=== PATIENT | male | born 1960 | race Hispanic/Latino ===

== ENCOUNTER 2018-07-02 12:37 | Emergency (ER) | payer SELFPAY ==
[2018-07-02 13:27] LABS: Absolute Lymphocytes (CBC) 0.4 K/uL (0.7-4.9); Absolute Monocytes 0.6 K/uL (0.1-1.3); Absolute Neutrophil 6.4 K/uL (1.8-8.0); Basophils % 0.3 % (0-1.3); Eosinophils % 0.1 % (0-4.4); Hematocrit 44.4 % (39.6-49.0); Lymphocytes % 5.1 % (15.3-44.8); MCH 30.2 pg (27.0-35.0); MCV 87.1 fL (80-100); MPV 7.7 fL (7.6-11.3); Monocytes % 8.6 % (3.3-12.3)
[2018-07-02 13:52] LABS: Urine White Blood Cell Casts OK
[2018-07-02 13:53] LABS: Blood Morphology Comment NOT SEEN (NOT SEEN); Platelet Estimate ADEQ
[2018-07-02 13:56] LABS: Albumin 3.9 g/dL (3.4-5.0); Bilirubin Direct 0.2 mg/dL (0-0.2); Bilirubin Total 0.5 mg/dL (0.2-1.0); Potassium 3.5 mmol/L (3.5-5.1); Protein, Total 7.7 g/dL (6.4-8.2)
--- NOTE | 2018-07-02 14:35 | RAD REPORT ---
EXAM DESCRIPTION: CTAbdomen Pelvis W Contrast - 07/02/2018 2:24 pm CLINICAL HISTORY: Abdominal pain. iv contrast only;Abd pain COMPARISON: CT ABD PELVIS W CONTRAST dated 06/19/2015; CT ABD PELVIS W CONTRAST dated 09/09/2014 TECHNIQUE: Biphasic CT imaging of the abdomen and pelvis was performed with 100 ml non-ionic IV cont rast. All CT scans are performed using dose optimization technique as appropriate and may include automated exposure control or mA/KV adjustment according to patient size. FINDINGS: The lung bases are clear. The liver demonstrates diffuse fatty infiltration. The spleen, pancreas, adrenal glands and kidneys a re within normal limits. No bowel obstruction, free air, free fluid or abscess. Sigmoid diverticulosis coli without diverticul itis. The appendix is normal. Small fat containing left inguinal hernia. No evidence of significant l ymphadenopathy. No suspicious bony findings. IMPRESSION: No acute intra-abdominal or pelvic finding. Sigmoid diverticulosis coli without diverticulitis. Fatty liver.
--- NOTE | 2018-07-02 14:40 | EDPHYS ---
Physician Documentation [facility] Name: Manjinder Kauffman Age: 58 yrs Sex: Male : 1960 Arrival Date: 07/02/2018 Time: 12:38 Bed 14 Private MD: None, None ED Physician Uvaldo Collado HPI: 07/02 13:28 This 58 yrs old Male presents to ER via Ambulatory with complaints of Abd Pain kb > 50 y/o, Fever. 13:28 The patient presents with abdominal pain in the left upper quadrant, in the left lower kb quadrant. Onset: The symptoms/episode began/occurred 4 day(s) ago. The symptoms do not radiate. Associated signs and symptoms: Pertinent positives: nausea and vomiting, Pertinent negatives: anorexia, blood in stools, chest pain, constipation, diarrhea, dysuria, fever, headache, hematuria, palpitations, shortness of breath, testicular pain, vomiting blood. The symptoms are described as achy. Modifying factors: The symptoms are alleviated by nothing, the symptoms are aggravated by nothing. Severity of pain: At its worst the pain was moderate in the emergency department the pain is unchanged. The patient has not experienced similar symptoms in the past. The patient has not recently seen a physician. Historical: - Allergies: 12:49 No Known Allergies; iw - Home Meds: 12:49 None [Active]; iw - PMHx: 12:49 None; iw - PSHx: 12:49 None; iw - Immunization history:: Adult Immunizations not up to date. - Social history:: Smoking status: Patient/guardian denies using tobacco. - Ebola Screening: : Patient negative for fever greater than or equal to 101.5 degrees Fahrenheit, and additional compatible Ebola Virus Disease symptoms Patient denies exposure to infectious person Patient denies travel to an Ebola-affected area in the 21 days before illness onset No symptoms or risks identified at this time. ROS: 13:25 Constitutional: Negative for fever, chills, and weight loss, Cardiovascular: Negative kb for chest pain, palpitations, and edema, Respiratory: Negative for shortness of breath, cough, wheezing, and pleuritic chest pain, Back: Negative for injury and pain, : Negative for injury, bleeding, discharge, and swelling, MS/Extremity: Negative for injury and deformity, Skin: Negative for injury, rash, and discoloration, Neuro: Negative for headache, weakness, numbness, tingling, and seizure. 13:25 Abdomen/GI: Positive for abdominal pain, nausea and vomiting, Negative for diarrhea, constipation, abdominal cramps, abdominal distension, anorexia. Exam: 13:27 Constitutional: This is a well developed, well nourished patient who is awake, alert, kb and in no acute distress. Head/Face: Normocephalic, atraumatic. Chest/axilla: Normal chest wall appearance and motion. Nontender with no deformity. No lesions are appreciated. Cardiovascular: Regular rate and rhythm with a normal S1 and S2. No gallops, murmurs, or rubs. Normal PMI, no JVD. No pulse deficits. Respiratory: Lungs have equal breath sounds bilaterally, clear to auscultation and percussion. No rales, rhonchi or wheezes noted. No increased work of breathing, no retractions or nasal flaring. Back: No spinal tenderness. No costovertebral tenderness. Full range of motion. Skin: Warm, dry with normal turgor. Normal color with no rashes, no lesions, and no evidence of cellulitis. MS/ Extremity: Pulses equal, no cyanosis. Neurovascular intact. Full, normal range of motion. Neuro: Awake and alert, GCS 15, oriented to person, place, time, and situation. Cranial nerves II-XII grossly intact. Motor strength 5/5 in all extremities. Sensory grossly intact. Cerebellar exam normal. Normal gait. 13:27 Abdomen/GI: Inspection: abdomen appears normal, Bowel sounds: normal, in all quadrants, Palpation: soft, in all quadrants, mild abdominal tenderness, in all quadrants. Vital Signs: 12:48 BP 108 / 85; Pulse 105; Resp 17 S; Temp 99.0; Pulse Ox 96% on R/A; Pain 7/10; iw 13:45 BP 114 / 83; Pulse 80; Resp 17; Pulse Ox 96% on R/A; dh3 14:00 BP 121 / 61; Pulse 88; Resp 18; Pulse Ox 95% on R/A; dh3 15:00 BP 124 / 60; Pulse 82; Resp 17; Pulse Ox 99% on R/A; kr2 MDM: 12:47 Patient medically screened. kb 13:28 Data reviewed: vital signs, nurses notes. Data interpreted: Pulse oximetry: on room air kb is 96 %. Interpretation: normal. 14:38 Counseling: I had a detailed discussion with the patient and/or guardian regarding: the kb historical points, exam findings, and any diagnostic results supporting the discharge/admit diagnosis, lab results, radiology results, the need for outpatient follow up, a family practitioner, to return to the emergency department if symptoms worsen or persist or if there are any questions or concerns that arise at home. 07/02 12:51 Order name: Amylase, Serum; Complete Time: 13:58 kb 07/02 12:51 Order name: Basic Metabolic Panel; Complete Time: 13:58 kb 07/02 12:51 Order name: CBC with Diff; Complete Time: 13:58 kb 07/02 12:51 Order name: Hepatic Function; Complete Time: 13:58 kb 07/02 12:51 Order name: Lipase; Complete Time: 13:58 kb 07/02 13:30 Order name: CBC Smear Scan; Complete Time: 13:58 EDMS 07/02 12:51 Order name: IV Saline Lock; Complete Time: 13:23 kb 07/02 12:51 Order name: Labs collected and sent; Complete Time: 13:23 kb 07/02 13:59 Order name: CT Abd/Pelvis - W/Contrast; Complete Time: 14:38 kb Administered Medications: 13:21 Drug: Bentyl 20 mg Route: PO; kr2 13:50 Follow up: Response: No adverse reaction; Pain is decreased kr2 13:21 Drug: Zofran 4 mg Route: IVP; Site: right antecubital; kr2 13:50 Follow up: Response: No adverse reaction; Nausea is decreased kr2 13:22 Drug: NS 0.9% 1000 ml Route: IV; Rate: 1000 ml; Site: right antecubital; kr2 14:45 Follow up: Response: No adverse reaction; IV Status: Completed infusion kr2 Disposition: 07/03 07:22 Co-signature as Attending Physician, Uvaldo Collado MD I agree with the assessment and estefanía plan of care. Disposition: 07/02/18 14:39 Discharged to Home. Impression: Generalized abdominal pain, Nausea and vomiting. - Condition is Stable. - Discharge Instructions: Nausea and Vomiting, Adult, [id number], Abdominal Pain, Adult, [id number]. - Prescriptions for Bentyl 20 mg Oral Tablet - take 1 tablet by ORAL route every 6 hours As needed; 20 tablet. Zofran 4 mg Oral Tablet - take 1 tablet by ORAL route every 6 hours As needed; 20 tablet. - Medication Reconciliation Form, Thank You Letter, Antibiotic Education, Prescription Opioid Use form. - Follow up: Emergency Department; When: As needed; Reason: Worsening of condition. Follow up: Private Physician; When: 2 - 3 days; Reason: Recheck today's complaints, Continuance of care, Re-evaluation by your physician. Signatures: Dispatcher [employer] EDMS Kristi Tang, BATH DESIGN SALES CONSULTANT-C BATH DESIGN SALES CONSULTANT-Ckb Uvaldo Collado MD MD cha Williams, Irene RN Kandace Guerra RN RN kr2 Corrections: (The following items were deleted from the chart) 07/02 13:28 13:25 Constitutional: Negative for fever, chills, and weight loss, Cardiovascular: kb Negative for chest pain, palpitations, and edema, Respiratory: Negative for shortness of breath, cough, wheezing, and pleuritic chest pain, Back: Negative for injury and pain, : Negative for injury, bleeding, discharge, and swelling, MS/Extremity: Negative for injury and deformity, Skin: Negative for injury, rash, and discoloration, Neuro: Negative for headache, weakness, numbness, tingling, and seizure, kb 13:28 13:25 Neuro: Positive for dizziness, headache, Negative for altered mental status, gait kb disturbance, seizure activity, syncope, kb 15:39 12:51 Urine Dipstick-Ancillary ordered. kb kr2 15:40 14:39 07/02/2018 14:39 Discharged to Home. Impression: Generalized abdominal pain; kr2 Nausea and vomiting. Condition is Stable. Forms are Medication Reconciliation Form, Thank You Letter, Antibiotic Education, Prescription Opioid Use. Follow up: Emergency Department; When: As needed; Reason: Worsening of condition. Follow up: Private Physician; When: 2 - 3 days; Reason: Recheck today's complaints, Continuance of care, Re-evaluation by your physician. kb
--- NOTE | 2018-07-02 14:40 | ER ---
Nurse's Notes [facility] Name: Manjinder Kauffman Age: 58 yrs Sex: Male : 1960 Arrival Date: 07/02/2018 Time: 12:38 Bed 14 Private MD: None, None Diagnosis: Generalized abdominal pain;Nausea and vomiting Presentation: 07/02 12:44 Presenting complaint: Patient states: just back from [place] today, has had abd pain LLQ sg and RLQ for four days, reports nausea, denies fever/vomiting, thinks maybe it was some bad meat he ate. denies urinary problems. Transition of care: patient was not received from another setting of care. Onset of symptoms was July 02, 2018. Risk Assessment: Do you want to hurt yourself or someone else? Patient reports no desire to harm self or others. 12:44 Method Of Arrival: Ambulatory sg 12:44 Acuity: ERNESTINE 3 sg 13:10 Initial Sepsis Screen: Does the patient meet any 2 criteria? No. Patient's initial kr2 sepsis screen is negative. Does the patient have a suspected source of infection? No. Patient's initial sepsis screen is negative. Care prior to arrival: None. Historical: - Allergies: 12:49 No Known Allergies; iw - Home Meds: 12:49 None [Active]; iw - PMHx: 12:49 None; iw - PSHx: 12:49 None; iw - Immunization history:: Adult Immunizations not up to date. - Social history:: Smoking status: Patient/guardian denies using tobacco. - Ebola Screening: : Patient negative for fever greater than or equal to 101.5 degrees Fahrenheit, and additional compatible Ebola Virus Disease symptoms Patient denies exposure to infectious person Patient denies travel to an Ebola-affected area in the 21 days before illness onset No symptoms or risks identified at this time. Screenin:10 Abuse screen: Denies threats or abuse. Denies injuries from another. Nutritional kr2 screening: No deficits noted. Tuberculosis screening: No symptoms or risk factors identified. Fall Risk None identified. Assessment: 13:10 General: Appears in no apparent distress. uncomfortable, well groomed, well developed, kr2 well nourished, Behavior is cooperative, appropriate for age. Pain: Complains of pain in abdomen Pain does not radiate. Pain currently is 8 out of 10 on a pain scale. Quality of pain is described as aching, crampy, Is continuous, Alleviated by nothing. Neuro: Level of Consciousness is awake, alert, obeys commands, Oriented to person, place, time, situation, Appropriate for age. Cardiovascular: Capillary refill < 3 seconds in bilateral fingers. Respiratory: Airway is patent Respiratory effort is even, unlabored, Respiratory pattern is regular, symmetrical. GI: Bowel sounds present X 4 quads. Abd is soft X 4 quads Abdomen is tender to palpation X 4 quads. GI: Reports nausea, vomiting, since 4 days ago, after a trip to [place]. : Denies burning with urination, inability to void. EENT: Oral mucosa is moist. Derm: Skin is clammy, Skin is pale, Skin temperature is warm. Musculoskeletal: Circulation, motion, and sensation intact. 14:30 Reassessment: Patient appears in no apparent distress at this time. Patient and/or kr2 family updated on plan of care and expected duration. Pain level reassessed. Patient is alert, oriented x 3, equal unlabored respirations, skin warm/dry/pink. Patient states feeling better. Patient states symptoms have improved. 15:30 Reassessment: Patient appears in no apparent distress at this time. Patient and/or kr2 family updated on plan of care and expected duration. Pain level reassessed. Patient is alert, oriented x 3, equal unlabored respirations, skin warm/dry/pink. Patient denies pain at this time. Patient states feeling better. Vital Signs: 12:48 BP 108 / 85; Pulse 105; Resp 17 S; Temp 99.0; Pulse Ox 96% on R/A; Pain 7/10; iw 13:45 BP 114 / 83; Pulse 80; Resp 17; Pulse Ox 96% on R/A; dh3 14:00 BP 121 / 61; Pulse 88; Resp 18; Pulse Ox 95% on R/A; dh3 15:00 BP 124 / 60; Pulse 82; Resp 17; Pulse Ox 99% on R/A; kr2 ED Course: 12:38 Patient arrived in ED. sb2 12:39 None, None is Private Physician. sb2 12:44 Triage completed. sg 12:45 Arm band placed on. sg 12:46 Kristi Tang FNP-C is PHCP. kb 12:46 Uvaldo Collado MD is Attending Physician. kb 13:10 Patient has correct armband on for positive identification. Bed in low position. Call kr2 light in reach. Side rails up X 1. Adult w/ patient. Pulse ox on. NIBP on. Door closed. Head of bed. 13:10 Inserted saline lock: 20 gauge in right antecubital area, using aseptic technique. kr2 Blood collected. 13:12 Kandace Mae, RN is Primary Nurse. kr2 14:[address] via wheelchair. sj 14:24 CT Abd/Pelvis - W/Contrast In Process Unspecified. EDMS 15:30 No provider procedures requiring assistance completed. IV discontinued, intact, kr2 bleeding controlled, No redness/swelling at site. Pressure dressing applied. Administered Medications: 13:21 Drug: Bentyl 20 mg Route: PO; kr2 13:50 Follow up: Response: No adverse reaction; Pain is decreased kr2 13:21 Drug: Zofran 4 mg Route: IVP; Site: right antecubital; kr2 13:50 Follow up: Response: No adverse reaction; Nausea is decreased kr2 13:22 Drug: NS 0.9% 1000 ml Route: IV; Rate: 1000 ml; Site: right antecubital; kr2 14:45 Follow up: Response: No adverse reaction; IV Status: Completed infusion kr2 Outcome: 14:39 Discharge ordered by . kb 15:30 Discharged to home ambulatory, with family. kr2 15:30 Condition: improved 15:30 Discharge instructions given to patient, Instructed on discharge instructions, follow up and referral plans. medication usage, Demonstrated understanding of instructions, follow-up care, medications, Prescriptions given X 2. 15:40 Patient left the ED. kr2 Signatures: Dispatcher [employer] EDKS Kristi Tang, HAIR ROOTING MACHINE OPERATOR-C HAIR ROOTING MACHINE OPERATOR-Derrell Diego, RN Ignacia Richardson Irene RN Poonam Mejia 3 Kandace Mae, HERB RN kr2 Dorothy Hassan2
[2018-07-02 15:51] VITALS: TEMP 99
[2018-07-02 15:54] VITALS: BP 121/61; O2SAT 95
== END 2018-07-02 15:40 | disposition home or self-care (01) ==
LOC: ER 12:37
DX: R11.2 Nausea with vomiting, unspecified (principal)
CPT/HCPCS: 36415; 74177; 80048; 80076; 82150; 83690; 85025; 96361; 96374; 99284; Q9967

== ENCOUNTER 2021-08-27 22:30 | Emergency (ER) | payer SELFPAY ==
[2021-08-27] MEDS ORDERED: NA CHLORIDE 0.9% 1,000 ML ONE (23:21)
[2021-08-27 23:46] LABS: Absolute Lymphocytes (CBC) 1.6 K/uL (0.7-4.9); Basophils % 1.1 % (0-1.3); Lymphocytes % 23.6 % (15.3-44.8); MPV 6.6 fL (7.6-11.3); Protime INR 1.08; RBC Red Blood Cell Count 4.27 M/uL (4.33-5.43)
[2021-08-27 23:56] LABS: Urine Blood Negative (Negative); Urine Glucose Negative (Negative); Urine Protein Negative (Negative)
[2021-08-28 00:01] LABS: ALT/SGPT 43 U/L (12-78); AST/SGOT 15 U/L (15-37); Albumin 3.2 g/dL (3.4-5.0); Alkaline Phosphatase 53 U/L (45-117); BUN Blood Urea Nitrogen 5 mg/dL (7-18); Bicarbonate 27 mmol/L (21-32); Bilirubin Direct 0.1 mg/dL (0-0.2); Bilirubin Total 0.5 mg/dL (0.2-1.0); Glucose Level 97 mg/dL (74-106); Lipase 317 U/L (73-393); Magnesium 2.1 mg/dL (1.8-2.4); NT PRO-BNP 58 pg/mL (<125); Potassium 3.4 mmol/L (3.5-5.1); Protein, Total 6.6 g/dL (6.4-8.2); Sodium Level 140 mmol/L (136-145); Troponin (Emerg Dept Use Only) < 0.02 ng/mL (0.0-0.045)
[2021-08-28] MEDS ORDERED: POTASSIUM CL SA 10 MEQ TAB PO ONE (01:11)
[2021-08-28] MEDS ORDERED: HYDROCODONE/APAP 5/325 MG TAB ONE (02:29)
--- NOTE | 2021-08-28 02:32 | EDPHYS ---
Physician Documentation [facility] Name: Manjinder Kauffman Age: 61 yrs Sex: Male : 1960 Arrival Date: 08/27/2021 Time: 22:36 Bed 12 Private MD: ED Physician Vinay Mathur HPI: 08/27 23:17 This 61 yrs old Male presents to ER via Wheelchair with complaints of Low Back pkl Pain. 23:17 The patient presents with pain that is acute. The symptoms are located in the right mid pkl back. The pain does not radiate. Onset: The symptoms/episode began/occurred 3 day(s) ago. Patient discharged from [facility] 1 week ago Patient was admitted for Covid pneumonia for 24 days. Historical: - Allergies: 22:59 No Known Allergies; lp1 - PMHx: 22:59 covid; lp1 - PSHx: 22:59 None; lp1 - Immunization history:: Client reports having NOT received the Covid vaccine. - Social history:: Smoking status: Patient denies any tobacco usage or history of. ROS: 23:17 Eyes: Negative for injury, pain, redness, and discharge, ENT: Negative for injury, pkl pain, and discharge, Neck: Negative for injury, pain, and swelling, Cardiovascular: Negative for chest pain, palpitations, and edema, Respiratory: Negative for shortness of breath, cough, wheezing, and pleuritic chest pain, Abdomen/GI: Negative for abdominal pain, nausea, vomiting, diarrhea, and constipation. 23:17 Back: Positive for pain at rest, of the right mid back. 23:17 : Negative for urinary symptoms. 23:17 MS/extremity: Negative for acute changes. 23:17 Skin: Negative for rash. 23:17 Neuro: Negative for altered mental status, loss of consciousness. Exam: 23:17 Head/Face: Normocephalic, atraumatic. Eyes: Pupils equal round and reactive to light, pkl extra-ocular motions intact. Lids and lashes normal. Conjunctiva and sclera are non-icteric and not injected. Cornea within normal limits. Periorbital areas with no swelling, redness, or edema. ENT: Nares patent. No nasal discharge, no septal abnormalities noted. Tympanic membranes are normal and external auditory canals are clear. Oropharynx with no redness, swelling, or masses, exudates, or evidence of obstruction, uvula midline. Mucous membranes moist. Neck: Trachea midline, no thyromegaly or masses palpated, and no cervical lymphadenopathy. Supple, full range of motion without nuchal rigidity, or vertebral point tenderness. No Meningismus. Chest/axilla: Normal chest wall appearance and motion. Nontender with no deformity. No lesions are appreciated. Cardiovascular: Regular rate and rhythm with a normal S1 and S2. No gallops, murmurs, or rubs. Normal PMI, no JVD. No pulse deficits. Respiratory: Lungs have equal breath sounds bilaterally, clear to auscultation and percussion. No rales, rhonchi or wheezes noted. No increased work of breathing, no retractions or nasal flaring. Abdomen/GI: Soft, non-tender, with normal bowel sounds. No distension or tympany. No guarding or rebound. No evidence of tenderness throughout. 23:17 Back: pain, that is moderate, of the right back. 23:17 : Exam negative for acute changes. 23:17 Musculoskeletal/extremity: Exam is negative for acute changes. 23:17 Skin: Exam negative for rash. 23:17 Neuro: Orientation: is normal, Mentation: is normal, Cranial nerves: grossly normal, Motor: is normal. Vital Signs: 22:56 BP 115 / 94; Pulse 105; Resp 22; Temp 98.6(O); Pulse Ox 97% on 4 lpm NC; Weight 65.77 lp1 kg; Height 5 ft. 5 in. (165.10 cm); 23:04 BP 110 / 89; Pulse 91; Resp 24; Temp 98.4; Pulse Ox 99% on 4 lpm NC; cc4 08/28 00:00 BP 109 / 70; Pulse 87; Resp 17; Pulse Ox 100% on 4 lpm NC; cc4 01:15 BP 105 / 79; Pulse 77; Resp 22; Pulse Ox 100% on 4 lpm NC; cc4 02:15 BP 104 / 79; Pulse 87; Resp 20; Pulse Ox 100% on 4 lpm NC; cc4 02:30 BP 106 / 76; Pulse 85; Resp 22; Temp 98.0(O); Pulse Ox 100% on 4 lpm NC; cc4 08/27 22:56 Body Mass Index 24.13 (65.77 kg, 165.10 cm) lp1 MDM: 08/27 22:46 Patient medically screened. [facility] 08/28 02:28 Data reviewed: vital signs, nurses notes, lab test result(s), EKG, radiologic studies, pkl CT scan, plain films. ED course: Discussed lab, EKG and imaging studies with patient and son. Advised to follow up with PCP in 2 to 3 days. To return if necessary. Patient and son understood instructions. 08/27 23:16 Order name: Basic Metabolic Panel [facility] 08/27 23:16 Order name: CBC with Diff [facility] 08/27 23:16 Order name: LFT's [facility] 08/27 23:16 Order name: Magnesium [facility] 08/27 23:16 Order name: NT PRO-BNP [facility] 08/27 23:16 Order name: PT-INR; Complete Time: 00:04 [facility] 08/27 23:16 Order name: Troponin (emerg Dept Use Only); Complete Time: 00:04 [facility] 08/27 23:16 Order name: Lipase; Complete Time: 00:04 [facility] 08/27 23:16 Order name: Basic Metabolic Panel; Complete Time: 00:04 [facility] 08/27 23:16 Order name: CBC with Automated Diff; Complete Time: 00:04 [facility] 08/27 23:17 Order name: Liver (Hepatic) Function; Complete Time: 00:04 [facility] 08/27 23:17 Order name: Magnesium; Complete Time: 00:04 [facility] 08/27 23:17 Order name: NT PRO-BNP; Complete Time: 00:04 [facility] 08/27 23:24 Order name: D-Dimer [facility] 08/27 23:16 Order name: XRAY Chest (1 view) [facility] 08/27 23:16 Order name: EKG; Complete Time: 23:17 [facility] 08/27 23:16 Order name: Cardiac monitoring; Complete Time: 23:37 [facility] 08/27 23:16 Order name: EKG - Nurse/Tech; Complete Time: 23:52 [facility] 08/27 23:16 Order name: IV Saline Lock; Complete Time: 23:38 [facility] 08/27 23:16 Order name: Labs collected and sent; Complete Time: 23:38 [facility] 08/27 23:16 Order name: O2 Per Protocol; Complete Time: 23:38 pkl 08/27 23:16 Order name: O2 Sat Monitoring; Complete Time: 23:38 pkl 08/27 23:16 Order name: Urine Dipstick-Ancillary (obtain specimen); Complete Time: 23:52 pkl 08/27 23:24 Order name: D-Dimer; Complete Time: 00:04 EDMS 08/27 23:56 Order name: Urine Dipstick-Ancillary; Complete Time: 00:04 [facility] 08/28 00:34 Order name: CT Chest For PE Angio pkl 08/28 00:34 Order name: CT Abd/Pelvis - IV Contrast Only pkl Administered Medications: 08/27 23:30 Drug: NS 0.9% 1000 ml Route: IV; Rate: 125 ml/hr; Site: right forearm; cc4 08/28 02:30 Follow up: IV Status: Order to discontinue infusion; IV Intake: 350ml cc4 01:15 Drug: K-Dur (potassium chloride) 20 mEq Route: PO; cc4 02:15 Follow up: Response: No adverse reaction cc4 02:30 Drug: HYDROcodone-acetaminophen 5 mg-325 mg 1 tabs Route: PO; cc4 02:30 Follow up: Response: No adverse reaction cc4 Disposition Summary: 08/28/21 02:31 Discharge Ordered Location: Home pkl Problem: new pkl Symptoms: have improved pkl Condition: Stable pkl Diagnosis - Acute back pain. S/P Covid 19 pneumonia pkl Followup: pkl - With: Private Physician - When: 2 - 3 days - Reason: Re-evaluation by your physician Discharge Instructions: - Discharge Summary Sheet pkl Forms: - Medication Reconciliation Form pkl - Thank You Letter pkl - Antibiotic Education pkl - Prescription Opioid Use pkl Prescriptions: - Diclofenac Sodium 75 mg Oral tablet,delayed release (DR/EC) - take 1 tablet by ORAL route 2 times per day; 20 tablet; Refills: 0, Product pkl Selection Permitted Signatures: Dispatcher [employer] Vinay Mack MD MD pkl Floridalma Sheehan, RN RN lp1 Uvaldo Calderon PA PA cp Cooper, Christie RN RN cc4
--- NOTE | 2021-08-28 02:32 | ER ---
Nurse's Notes [facility] Name: Manjinder Kauffman Age: 61 yrs Sex: Male : 1960 Arrival Date: 08/27/2021 Time: 22:36 Bed 12 Private MD: Diagnosis: Acute back pain. S/P Covid 19 pneumonia Presentation: 08/27 22:56 Chief complaint: Patient states: low back pain for 3 days, denies trauma, was recently lp1 discharged from [facility] with covid, pt is using O2 at 4 LPM. Coronavirus screen: Vaccine status: Patient reports being unvaccinated. Client presents with at least one sign or symptom that may indicate coronavirus-19. Standard/surgical mask placed on the client. Provider contacted for isolation considerations. Client reports previous positive COVID test result. Date of collection: August 20, 2021. Ebola Screen: Patient negative for fever greater than or equal to 101.5 degrees Fahrenheit, and additional compatible Ebola Virus Disease symptoms Patient denies exposure to infectious person. Patient denies travel to an Ebola-affected area in the 21 days before illness onset. No symptoms or risks identified at this time. Initial Sepsis Screen: Does the patient meet any 2 criteria? HR > 90 bpm. No. Patient's initial sepsis screen is negative. Does the patient have a suspected source of infection? No. Patient's initial sepsis screen is negative. Risk Assessment: Do you want to hurt yourself or someone else? Patient reports no desire to harm self or others. Onset of symptoms was August 27, 2021. 22:56 Method Of Arrival: Wheelchair lp1 22:56 Acuity: ERNESTINE 3 lp1 Triage Assessment: 23:04 General: Appears uncomfortable, Behavior is calm, cooperative. Pain: Complains of pain cc4 in low back x 3 days Pain does not radiate. Pain currently is 7 out of 10 on a pain scale. Quality of pain is described as aching, Pain began 2-3 days ago. Is continuous, Alleviated by nothing. Aggravated by repositioning. EENT: No signs and/or symptoms were reported regarding the EENT system. Neuro: Level of Consciousness is awake, alert, Oriented to person, place, time, situation. Cardiovascular: Heart tones S1 S2. Respiratory: Airway is patent Breath sounds are clear bilaterally. GI: No signs and/or symptoms were reported involving the gastrointestinal system. : No signs and/or symptoms were reported regarding the genitourinary system. Derm: No signs and/or symptoms reported regarding the dermatologic system. Skin is intact. Musculoskeletal: Capillary refill < 3 seconds, Range of motion: limited in BLE. Injury Description: Denies any injury. 23:04 Respiratory: O2 intact \T\ 4 L/ NBP. cc4 Historical: - Allergies: 22:59 No Known Allergies; lp1 - PMHx: 22:59 covid; lp1 - PSHx: 22:59 None; lp1 - Immunization history:: Client reports having NOT received the Covid vaccine. - Social history:: Smoking status: Patient denies any tobacco usage or history of. Screenin:04 Abuse screen: Denies threats or abuse. Nutritional screening: No deficits noted. cc4 Tuberculosis screening: No symptoms or risk factors identified. Fall Risk Gait- Weak (10 pts.). Assessment: 23:04 Reassessment: See triage assessment. cc4 23:04 Reassessment: Patient appears in no apparent distress at this time. Son present \T\ cc4 reports that father had recently been treated in [place] \T\ [facility] for covid x 24 days \T\ now is c/o low back pain x 24 days. 23:04 Cardiovascular: Rhythm is sinus rhythm. cc4 23:30 Reassessment: # 20 g angiocath inserted right FA x 1 attempt \T\ converted to saline cc4 lock, tiarra. well; blood drawn \T\ sent to lab; EKG done; IV NS hung to saline lock right FA \T\ infusing \T\ 125 ml/hr/pump with no s/sx's of infiltration; NAD. 08/28 01:00 Reassessment: Patient appears in no apparent distress at this time. to CT via stretcher.cc4 01:15 Reassessment: Returned from CT via stretcher; reports being cold; additional warm cc4 blanket added; KCL 20 meq given po as ordered, tiarra. well. 02:15 Reassessment: Patient appears in no apparent distress at this time. Resting quietly; cc4 son \T\ bedside. 02:30 Reassessment: Patient appears in no apparent distress at this time. medicated as cc4 ordered; voices no complaints. 02:30 Cardiovascular: Rhythm is sinus rhythm. cc4 Vital Signs: 08/27 22:56 BP 115 / 94; Pulse 105; Resp 22; Temp 98.6(O); Pulse Ox 97% on 4 lpm NC; Weight 65.77 lp1 kg; Height 5 ft. 5 in. (165.10 cm); 23:04 BP 110 / 89; Pulse 91; Resp 24; Temp 98.4; Pulse Ox 99% on 4 lpm NC; cc4 08/28 00:00 BP 109 / 70; Pulse 87; Resp 17; Pulse Ox 100% on 4 lpm NC; cc4 01:15 BP 105 / 79; Pulse 77; Resp 22; Pulse Ox 100% on 4 lpm NC; cc4 02:15 BP 104 / 79; Pulse 87; Resp 20; Pulse Ox 100% on 4 lpm NC; cc4 02:30 BP 106 / 76; Pulse 85; Resp 22; Temp 98.0(O); Pulse Ox 100% on 4 lpm NC; cc4 08/27 22:56 Body Mass Index 24.13 (65.77 kg, 165.10 cm) lp1 ED Course: 08/27 22:36 Patient arrived in ED. ja2 22:46 Vinay Mathur MD is Attending Physician. pkl 22:47 Caroline Littlejohn, HERB is Primary Nurse. cc4 22:59 Triage completed. lp1 22:59 Arm band placed on. lp1 23:04 Bed in low position. Call light in reach. Side rails up X 1. environmental monitoring specialist on. Pulse cc4 ox on. NIBP on. 23:36 D-Dimer Sent. cc4 23:37 NT PRO-BNP Sent. cc4 23:37 Liver (Hepatic) Function Sent. cc4 23:37 Magnesium Sent. cc4 23:37 CBC with Automated Diff Sent. cc4 23:37 Basic Metabolic Panel Sent. cc4 23:37 Lipase Sent. cc4 23:37 Basic Metabolic Panel Sent. cc4 23:37 CBC with Diff Sent. cc4 23:37 LFT's Sent. cc4 23:37 Magnesium Sent. cc4 23:37 NT PRO-BNP Sent. cc4 23:37 XRAY Chest (1 view) Sent. cc4 23:38 XRAY Chest (1 view) In Process Unspecified. EDMS 23:38 PT-INR Sent. cc4 23:38 Troponin (emerg Dept Use Only) Sent. cc4 23:38 D-Dimer Sent. cc4 08/28 00:56 CT Abd/Pelvis - IV Contrast Only Sent. cc4 00:56 CT Chest For PE Angio Sent. cc4 01:39 CT Chest For PE Angio In Process Unspecified. EDMS 01:39 CT Abd/Pelvis - IV Contrast Only In Process Unspecified. EDMS 02:30 No provider procedures requiring assistance completed. cc4 02:30 IV discontinued, intact, bleeding controlled, No redness/swelling at site. Pressure cc4 dressing applied. Administered Medications: 08/27 23:30 Drug: NS 0.9% 1000 ml Route: IV; Rate: 125 ml/hr; Site: right forearm; cc4 08/28 02:30 Follow up: IV Status: Order to discontinue infusion; IV Intake: 350ml cc4 01:15 Drug: K-Dur (potassium chloride) 20 mEq Route: PO; cc4 02:15 Follow up: Response: No adverse reaction cc4 02:30 Drug: HYDROcodone-acetaminophen 5 mg-325 mg 1 tabs Route: PO; cc4 02:30 Follow up: Response: No adverse reaction cc4 Intake: 02:30 IV: 350ml; Total: 350ml. cc4 Outcome: 02:30 Discharged to home via wheelchair. cc4 02:30 Condition: stable 02:30 Discharge instructions given to patient, patient's son. Instructed on discharge instructions, follow up and referral plans. medication usage, Demonstrated understanding of instructions, follow-up care, medications. 02:31 Discharge ordered by . pkjimy 03:07 Patient left the ED. cc4 Signatures: Dispatcher [employer] Vinay Mack MD MD pkl Pena, Laura, RN RN lp1 Sherrie Anderson Christie, RN RN cc4
[2021-08-28 03:14] VITALS: O2SAT 100
[2021-08-28 03:19] VITALS: BP 106/76; TEMP 98
--- NOTE | 2021-08-28 08:59 | RAD REPORT ---
EXAM DESCRIPTION: RAD - Chest Single View - 08/27/2021 11:39 pm CLINICAL HISTORY: Covid pneumonia COMPARISON: June 2015 TECHNIQUE: AP portable chest image was obtained 08/27/2021 11:39 pm . FINDINGS: Lung volumes are low. Alveolar opacification present in the mid and lower lung clark. The re is relative sparing of each apex. Heart and vasculature are normal. No measurable pleural effusion and no pneumothorax. No acute bony abnormality seen. No acute aortic findings suspected. IMPRESSION: Moderate severity bilateral COVID-19 pneumonia.
--- NOTE | 2021-08-28 20:15 | RAD REPORT ---
EXAM DESCRIPTION: CT - Chest For Pe Angio - 08/28/2021 5:58 am CLINICAL HISTORY: 61 years, Male, Elevated D-Dimer COMPARISON: None. TECHNIQUE: Multiple transaxial tomograms of the chest were obtained from the lung apices through the lung bases utilizing 2 mm slice thickness at 2 mm interval reconstruction after the administration o f large bolus of IV contrast for complete opacification of the pulmonary arteries. Subsequent 3-D maximum intensity projection images were generated in the coronal and sagittal plane f or review. This exam was performed according to our departmental dose-optimization protocol, which includes auto mated exposure control, adjustment of the mA and/or kV according to patient size and/or use of iterat hi reconstruction technique. FINDINGS: The lungs parenchyma demonstrate the presence of bilateral upper and lower lobe peripheral groundglass opacities likely due to with interlobular septal thickening-crazy paving, suspicious for COVID-19 pneumonia. No significant masses, and/or consolidation are identified. The trachea mainstem bronchus demonstrate to be normal. There is no significant pericardial or pleura l effusions. The thoracic aorta demonstrate demonstrate to be within normal limits. Very minimal intimal calcifica tion. No evidence for dissection and/or significant aneurysm. The heart is normal in size. No evidenc e for right ventricular strain. There are no significant coronary artery calcifications. There is no significant mediastinal and/or hilar lymphadenopathy. The axillary regions demonstrate to be clear. Pulmonary arteries demonstrate to be normal, no intraluminal defect are seen that would suggest pulmo nary embolus. The bone windows demonstrate no significant skeletal lesions and/or evidence for sign ificant compression deformity. Minimal anterior spondylosis of the lower thoracic spine. The visualized portions of the upper abdomen demonstrate to be grossly unremarkable. IMPRESSION: No evidence for pulmonary embolism and/or thoracic aortic dissection. Commonly reported imaging features of COVID-19 pneumonia are present. Other processes such as influen za pneumonia and organizing pneumonia, as can be seen with drug toxicity and connective tissue diseas e, can cause a similar imaging pattern. (Reference: https://pubs.rsna.org/doi/full/10.1148/ryct.33950 88287). Electronically signed by: Cecil Cerrato MD 08/28/2021 2:15 AM ORDER MANAGEMENT SPECIALIST Due to temporary technical issues with the PACS/Fluency reporting system, reports are being signed by the in house radiologists without review as a courtesy to insure prompt reporting. The interpreting radiologist is fully responsible for the content of the report. .
--- NOTE | 2021-08-28 20:31 | RAD REPORT ---
EXAM DESCRIPTION: CT - Abdomen Pelvis W Contrast - 08/28/2021 5:58 am CLINICAL HISTORY: 61 years, Male, back pain COMPARISON: 07/02/2018. TECHNIQUE: Contrast-enhanced images of the abdomen and pelvis were performed utilizing 2 mm slice th ickness at 2 mm interval reconstruction from the lung bases to the ischial tuberosities after the adm inistration of IV contrast. In addition multiplanar reformats in the coronal and sagittal plane were obtained and reviewed. This exam was performed according to our departmental dose-optimization protocol, which includes auto mated exposure control, adjustment of the mA and/or kV according to patient size and/or use of iterat hi reconstruction technique. FINDINGS: The evaluation of the chest will be given in separate report. The liver, gallbladder, pancreas, spleen and adrenal glands demonstrate to be unremarkable, no focal lesions are noted. The kidneys demonstrate normal uptake of contrast media. No evidence for nephrolithiasis and/or hydro nephrosis. Grossly the unopacified stomach, small bowel and large bowel demonstrate to be within normal limits. There is no evidence for bowel dilatation and/or free air. The appendix is normal. The urinary bladder demonstrate to be unremarkable. The prostate gland is normal. The aorta demon strate no evidence for significant dissection and/or aneurysm. No significant atherosclerotic disease . There is no retroperitoneal lymphadenopathy. There is no evidence for ascites and/or significant abnormal fluid collections. The rest of the soft tissue and bony structures are within normal limits. There are small bilateral inguinal hernias containing omentum. IMPRESSION: No acute intra-abdominal process. Small bilateral inguinal hernias containing omentum. Electronically signed by: Cecil Cerrato MD 08/28/2021 2:20 AM PUDDLER HELPER Due to temporary technical issues with the PACS/Fluency reporting system, reports are being signed by the in house radiologists without review as a courtesy to insure prompt reporting. The interpreting radiologist is fully responsible for the content of the report. .
--- OUTSIDE RECORDS SUMMARY | 2021-08-28 23:27 | XMS REPORT | Continuity of Care Document ---
:1960 Author Organization [facility] Address [address] [place] [address] Dr. [address] [place] [address] Care Team Providers Name Role Phone SEAN Attending Clinician Unavailable MAYCO Attending Clinician Unavailable NIRAJ Admitting Clinician Unavailable Problems This patient has no known problems. Allergies, Adverse Reactions, Alerts This patient has no known allergies or adverse reactions. Medications This patient has no known medications. Procedures This patient has no known procedures. Encounters Start End Encounter Admission Attending Care Care Encounter Source Date/Time Date/Time Type Type Clinicians Facility Department ID 2021-08-27 2021-08-27 [id number] [place] [facility]:00 RADHA [address] 2021-07-26 2021-08-20 [facility] [id number] [place] 00:00:00 00:00:00 APRYL [address] Results This patient has no known results.
== END 2021-08-28 03:07 | disposition home or self-care (01) ==
LOC: ER 22:30
DX: M54.9 Dorsalgia, unspecified (principal); Z86.16 Personal history of COVID-19
CPT/HCPCS: 36415; 71045; 71275; 74177; 80048; 80076; 81003; 83690; 83735; 83880; 84484; 85025; 85379; 85610; 93005; 96360; 96361; 99284; J7030; Q9967

== ENCOUNTER 2021-09-24 11:37 | Emergency (ER) | payer SELFPAY ==
--- OUTSIDE RECORDS SUMMARY | 2021-09-24 11:40 | XMS REPORT | Continuity of Care Document ---
:1960 Author Organization [facility] Address [address] [place] [address] Dr. Rodriguez [address] [place] [id number] Care Team Providers Name Role Phone SEAN [...] Date/Time Type Type Clinicians Facility Department ID 2021-08-30 2021-08-30 [facility] [id number] [place] 00:00:00 00:00:00 RADHA [address] 2021-08-27 2021-08-27 [facility] [id number] [place] 00:00:00 00:00:00 RADHA [address] 2021-07-26 2021-08-20 [id number] [place] 00:[facility]:00 00:00:00 APRYL [address] Results This patient has no known results.
--- NOTE | 2021-09-24 14:22 | RAD REPORT ---
EXAM DESCRIPTION: RAD - Chest Single View - 09/24/2021 2:10 pm CLINICAL HISTORY: COUGH COMPARISON: Chest Single View dated 08/27/2021; CHEST SINGLE VIEW dated 06/19/2015; CHEST SINGLE VIEW dated 06/08/2015; CHEST PA AND LAT 2 VIEW dated 08/14/2008; Chest For Pe Angio dated 08/28/2021 FINDINGS: Lines: None. Lungs: Basilar airspace disease with modest improvement compared with 08/27/2021. Residual opacities are noted. Pleural: No significant pleural effusions or pneumothorax. Cardiac: The heart size is within normal limits. Bones: No acute fractures. Other: IMPRESSION: Improved though not resolved bilateral airspace disease consistent with the sequela of r ecent pneumonia.
--- NOTE | 2021-09-24 15:55 | ER ---
Nurse's Notes [facility] Name: Manjinder Kauffman Age: 61 yrs Sex: Male : 1960 Arrival Date: 09/24/2021 Time: 11:38 Bed 4 Private MD: Diagnosis: Cough;Balanitis;Candidiasis, unspecified Presentation: 09/24 12:20 Chief complaint: Patient states: productive cough x 2 months after being admitted for ss covid. Denies fever. Pt reports since last night his cough and shortness of breath seems worse. Coronavirus screen: Client denies travel out of the [place] in the last 14 days. Ebola Screen: Patient denies exposure to infectious person. Patient denies travel to an Ebola-affected area in the 21 days before illness onset. Initial Sepsis Screen: Does the patient meet any 2 criteria? No. Patient's initial sepsis screen is negative. Does the patient have a suspected source of infection? No. Patient's initial sepsis screen is negative. Risk Assessment: Do you want to hurt yourself or someone else? Patient reports no desire to harm self or others. Onset of symptoms was July 2021. 12:20 Method Of Arrival: Ambulatory ss 12:20 Acuity: ERNESTINE 3 ss 12:20 Note Pt reports that he had a prescription for cough tablets that did not help his ss cough, but thinks he may need a cough syrup. Triage Assessment: 14:45 General: Appears in no apparent distress. comfortable, Behavior is cooperative, bp appropriate for age, anxious. Pain: Denies pain. EENT: No deficits noted. Neuro: No deficits noted. Cardiovascular: No deficits noted. Respiratory: Reports shortness of breath cough that is. GI: No signs and/or symptoms were reported involving the gastrointestinal system. : No signs and/or symptoms were reported regarding the genitourinary system. Derm: No deficits noted. Musculoskeletal: No deficits noted. Historical: - Allergies: 12:22 No Known Allergies; ss - Home Meds: 12:22 None [Active]; ss - PMHx: 12:22 None; ss - PSHx: 12:22 None; ss - Immunization history:: Client reports having NOT received the Covid vaccine. - Social history:: Smoking status: Patient denies any tobacco usage or history of. Screenin:45 Abuse screen: Denies threats or abuse. Denies injuries from another. Nutritional bp screening: No deficits noted. Tuberculosis screening: No symptoms or risk factors identified. Fall Risk None identified. Assessment: 14:45 General: SEE TRIAGE NOTE. bp 16:25 Reassessment: PT D/C HOME AMBULATORY, DX WITH [facility]. bp Vital Signs: 12:22 BP 119 / 72; Pulse 100; Resp 18; Pulse Ox 95% on R/A; ss 12:24 BP 108 / 81; Temp 98.1(O); Weight 68.04 kg; Height 5 ft. 5 in. (165.10 cm); Pain 5/10; ss 12:25 Pulse Ox 97% on R/A; ss 14:55 BP 99 / 77; Pulse 83; Resp 16; Pulse Ox 97% ; bp 16:26 BP 114 / 80; Pulse 96; Resp 17; Temp 98; Pulse Ox 96% ; bp 12:24 Body Mass Index 24.96 (68.04 kg, 165.10 cm) ED Course: 11:38 Patient arrived in ED. am2 12:21 Triage completed. ss 12:22 Arm band placed on left wrist. ss 14:10 XRAY Chest (1 view) In Process Unspecified. EDMS 14:47 Jabari Egan, HERB is Primary Nurse. bp 15:02 Radhames Monroe NP is PHCP. pm1 15:02 John Paul Alejandro MD is Attending Physician. pm1 16:25 Patient has correct armband on for positive identification. Bed in low position. Call bp light in reach. Side rails up X2. 16:25 No provider procedures requiring assistance completed. Patient did not have IV access bp during this emergency room visit. Administered Medications: No medications were administered Outcome: 15:55 Discharge ordered by . pm1 16:25 Discharged to home ambulatory. bp 16:25 Condition: stable 16:25 Discharge instructions given to patient, Instructed on discharge instructions, follow up and referral plans. medication usage, Demonstrated understanding of instructions, follow-up care, medications, Prescriptions given X 2. 16:27 Patient left the ED. bp Signatures: Dispatcher [employer] EDME Babita Reinoso RN RN Radhames Monroe NP DRIVER MERCHANDISER pm1 Hortencia Clay am2 Jabari Egan RN RN bp Corrections: (The following items were deleted from the chart) 12:22 PMHx: COVID; ss ss
--- NOTE | 2021-09-24 15:55 | EDPHYS ---
Physician Documentation [facility] Name: Manjinder Kauffman Age: 61 yrs Sex: Male : 1960 Arrival Date: 09/24/2021 Time: 11:38 Bed 4 Private MD: ED Physician John Paul Alejandro HPI: 09/24 15:55 This 61 yrs old Male presents to ER via Ambulatory with complaints of Cough. pm1 15:55 The patient or guardian reports cough, with no sputum. pm1 15:55 Onset: The symptoms/episode began/occurred 1 month(s) ago, Patient reports still pm1 present after discharge from hospitalization with Covid pneumonia. Severity of symptoms: in the emergency department the symptoms are unchanged. Modifying factors: The symptoms are alleviated by nothing, the symptoms are aggravated by nothing. Associated signs and symptoms: Pertinent negatives: chest pain, diarrhea, fever, vomiting, Shortness of breath. The patient has not experienced similar symptoms in the past. The patient has not recently seen a physician. Patient is also complaining of rash to head of penis and buttocks area. Historical: - Allergies: 12:22 No Known Allergies; ss - Home Meds: 12:22 None [Active]; ss - PMHx: 12:22 None; ss - PSHx: 12:22 None; ss - Immunization history:: Client reports having NOT received the Covid vaccine. - Social history:: Smoking status: Patient denies any tobacco usage or history of. ROS: 15:55 Constitutional: Negative for fever, chills, and weight loss, Cardiovascular: Negative pm1 for chest pain, palpitations, and edema. 15:55 Abdomen/GI: Negative for abdominal pain, nausea, vomiting, diarrhea, and constipation, Back: Negative for injury and pain, MS/Extremity: Negative for injury and deformity. 15:55 Neuro: Negative for headache, weakness, numbness, tingling, and seizure. 15:55 Respiratory: Positive for cough, Negative for shortness of breath, sputum production, wheezing. 15:55 Skin: Positive for Rash to genitalia and buttocks. 15:55 All other systems are negative. Exam: 15:55 Constitutional: This is a well developed, well nourished patient who is awake, alert, pm1 and in no acute distress. Head/Face: Normocephalic, atraumatic. 15:55 Back: No spinal tenderness. No costovertebral tenderness. Full range of motion. MS/ Extremity: Pulses equal, no cyanosis. Neurovascular intact. Full, normal range of motion. 15:55 Eyes: Exam is negative for acute changes, Extraocular movements: no acute changes, Conjunctiva: no acute changes, Sclera: no acute changes, icterus, is not appreciated. 15:55 Cardiovascular: Exam negative for acute changes, Rate: normal, Rhythm: regular, Pulses: no pulse deficits are appreciated. 15:55 Respiratory: Exam negative for acute changes, respiratory distress, shortness of breath. 15:55 Abdomen/GI: Exam negative for acute changes, Inspection: abdomen appears normal, Palpation: abdomen is soft and non-tender, in all quadrants. 15:55 Skin: Appearance: normal except for affected area, consistent with Patient with candidiasis present to head of penis and upper buttocks. 15:55 Neuro: Exam negative for acute changes, Orientation: is normal, Mentation: is normal, Motor: no acute changes, moves all fours. Vital Signs: 12:22 BP 119 / 72; Pulse 100; Resp 18; Pulse Ox 95% on R/A; ss 12:24 BP 108 / 81; Temp 98.1(O); Weight 68.04 kg; Height 5 ft. 5 in. (165.10 cm); Pain 5/10; ss 12:25 Pulse Ox 97% on R/A; ss 14:55 BP 99 / 77; Pulse 83; Resp 16; Pulse Ox 97% ; bp 16:26 BP 114 / 80; Pulse 96; Resp 17; Temp 98; Pulse Ox 96% ; bp 12:24 Body Mass Index 24.96 (68.04 kg, 165.10 cm) ss MDM: 15:40 Patient medically screened. pm1 15:53 Data reviewed: vital signs. Data interpreted: Pulse oximetry: on room air is 97 %. pm1 Interpretation: normal. Counseling: I had a detailed discussion with the patient and/or guardian regarding: the historical points, exam findings, and any diagnostic results supporting the discharge/admit diagnosis, radiology results, the need for outpatient follow up, to return to the emergency department if symptoms worsen or persist or if there are any questions or concerns that arise at home. 09/24 12:24 Order name: XRAY Chest (1 view); Complete Time: 15:01 ss Administered Medications: No medications were administered Disposition: 16:29 Co-signature as Attending Physician, John Paul Alejandro MD I agree with the assessment and kdr plan of care. Disposition Summary: 09/24/21 15:55 Discharge Ordered Location: Home pm1 Problem: new pm1 Symptoms: have improved pm1 Condition: Stable pm1 Diagnosis - Cough pm1 - Balanitis pm1 - Candidiasis, unspecified pm1 Followup: pm1 - With: Emergency Department - When: As needed - Reason: Worsening of condition Followup: pm1 - With: Private Physician - When: 2 - 3 days - Reason: Recheck today's complaints, Continuance of care, Re-evaluation by your physician Discharge Instructions: - Discharge Summary Sheet pm1 - Balanitis pm1 - Cough, Adult pm1 - Genital Yeast Infection, Male pm1 Forms: - Medication Reconciliation Form pm1 - Thank You Letter pm1 - Antibiotic Education pm1 - Prescription Opioid Use pm1 Prescriptions: - Guaifenesin AC 10-100 mg/5 mL Oral Liquid - take 10 milliliters by ORAL route every 4 hours As needed; 240 milliliter; pm1 Refills: 0, Product Selection Permitted - Clotrimazole 1 % Topical Cream - Apply to affected area 1 application by TOPICAL route every 12 hours; 30 gram; pm1 Refills: 0, Product Selection Permitted Signatures: Dispatcher [employer] EDMS John Paul Alejandro MD MD [facility] Babita Reinoso, HERB RN ss Radhames Monroe, CHEMICAL LABORATORY SCIENTIST CHEMICAL LABORATORY SCIENTIST pm1 Corrections: (The following items were deleted from the chart) 12:23 12:22 PMHx: COVID; ss ss
[2021-09-24 16:36] VITALS: BP 114/80; TEMP 98; O2SAT 96
== END 2021-09-24 16:27 | disposition home or self-care (01) ==
LOC: ER 11:37
DX: B37.42 Candidal balanitis (principal)
CPT/HCPCS: 71045; 99283